=== PATIENT | female | born 1945 | race Caucasian/White ===

== ENCOUNTER 2017-07-15 15:42 | Outpatient (CLI) | payer MEDICARE, BC ==
--- NOTE | 2017-07-16 09:25 | XRAY Report ---
CHEST, TWO VIEWS: 07/15/2017 HISTORY: Cough and congestion. FINDINGS: There is increased density at the right base with possible small effusion worrisome for an air-space process. The lungs are otherwise clear. The heart size is normal. Mild degenerative ericka nge in the spine with slight height loss of one mid thoracic vertebral body. IMPRESSION: RIGHT BASILAR AIR-SPACE PROCESS AND SMALL EFFUSION. FOLLOWUP TO COMPLETE RADIOGRAPHIC C YARED SUGGESTED. JOB #: [id number] EXT JOB #:[id number]
== END 2017-07-15 15:43 | disposition home or self-care (01) ==
LOC: DI 15:42
PROVIDERS: ATTEND Family Medicine
DX: J40 Bronchitis, not specified as acute or chronic (principal); R05 Cough; R09.89 Other specified symptoms and signs involving the circulatory and respiratory systems
CPT/HCPCS: 71020

== ENCOUNTER 2019-04-28 10:13 | Outpatient (CLI) | payer MEDICARE, BC ==
[2019-04-28 17:51] LABS: HGB - HEMOGLOBIN 12.5 g/dL (12.0-16.0); MEAN CORPUSCULAR HEMOGLOBIN 36.2 pg (27.0-31.0); MEAN CORPUSCULAR HGB CONC 32.2 g/dL (32.0-36.0); MEAN CORPUSCULAR VOLUME 112.5 fL (81.0-99.0); MEAN PLATELET VOLUME 12.4 fL (7.9-10.8); RED BLOOD COUNT 3.45 10^6/uL (4.20-5.40); RED CELL DISTRIBUTION WIDTH 13.2 % (12.0-15.0); WHITE BLOOD COUNT 7.1 x10^3/uL (4.8-10.8)
[2019-04-28 18:22] LABS: CALCIUM 9.6 mg/dL (8.5-10.3); CREATININE 0.7 mg/dL (0.4-1.0)
[2019-04-28 18:23] LABS: CREATININE,URINE 187.7 mg/dL; PROTEIN/CREATININE RATIO,URINE 0.1 (<=0.2)
== END 2019-04-28 10:14 | disposition home or self-care (01) ==
LOC: LAB.S 10:13
PROVIDERS: ATTEND Internal Medicine Nephrology
DX: N05.9 Unspecified nephritic syndrome with unspecified morphologic changes (principal); D70.9 Neutropenia, unspecified; R80.9 Proteinuria, unspecified
CPT/HCPCS: 36415; 80048; 82570; 84156; 85027

== ENCOUNTER 2019-10-07 08:00 | Outpatient (CLI) | payer MEDICARE, BC | END 2019-10-07 23:59 | disposition home or self-care (01) | LOC: LAB.R 08:00 | PROVIDERS: ATTEND Physician Assistant | DX: R19.7 Diarrhea, unspecified (principal) | CPT/HCPCS: 87045; 87046; 87493 ==

== ENCOUNTER 2020-01-07 10:40 | Outpatient (CLI) | payer MEDICARE, BC ==
[2020-01-07 17:52] LABS: FOLATE 19.38 ng/mL (5.90 - >24.8)
== END 2020-01-07 10:41 | disposition home or self-care (01) ==
LOC: LAB.S 10:40
PROVIDERS: ATTEND Physician Assistant
DX: D75.89 Other specified diseases of blood and blood-forming organs (principal)
CPT/HCPCS: 36415; 82607; 82746

== ENCOUNTER 2020-03-31 13:00 | Outpatient (CLI) | payer MEDICARE, BC ==
[2020-03-31 15:15] LABS: BASOPHILS % (AUTO) 0.7 %; EOSINOPHILS # (AUTO) 0.1 10^3/uL (0.0-0.7); EOSINOPHILS % (AUTO) 1.1 %; HGB - HEMOGLOBIN 12.9 g/dL (12.0-16.0); LYMPHOCYTES # (AUTO) 1.7 10^3/uL (1.5-3.5); MEAN CORPUSCULAR HEMOGLOBIN 37.8 pg (27.0-31.0); MEAN CORPUSCULAR HGB CONC 33.5 g/dL (32.0-36.0); MEAN CORPUSCULAR VOLUME 112.9 fL (81.0-99.0); MONOCYTES # (AUTO) 0.7 10^3/uL (0.0-1.0); MONOCYTES % (AUTO) 11.8 %; NEUTROPHILS # (AUTO) 3.1 10^3/uL (1.5-6.6); NEUTROPHILS % (AUTO) 55.2 %; PLT - PLATELET COUNT 259 10^3/uL (130-450); RED BLOOD COUNT 3.41 10^6/uL (4.20-5.40); RED CELL DISTRIBUTION WIDTH 13.3 % (12.0-15.0); WHITE BLOOD COUNT 5.6 x10^3/uL (4.8-10.8)
[2020-03-31 15:33] LABS: T4 (THYROXINE) 6.56 ug/dL (6.09-12.23)
[2020-03-31 15:43] LABS: TOTAL T3 0.93 ng/mL (0.87-1.78)
[2020-03-31 16:13] LABS: PLATELET ESTIMATE, MANUAL NORMAL (130-450,000) (NORMAL); PLATELET MORPHOLOGY NORMAL APPEARANCE (NORMAL); RBC MORPHOLOGY (MULTIPLE) 1+ MACROCYTOSIS (NORMAL)
== END 2020-03-31 13:01 | disposition home or self-care (01) ==
LOC: LAB.S 13:00
PROVIDERS: ATTEND Physician Assistant
DX: R94.6 Abnormal results of thyroid function studies (principal); D75.89 Other specified diseases of blood and blood-forming organs; R53.83 Other fatigue
CPT/HCPCS: 36415; 84436; 84480; 85025

== ENCOUNTER 2020-06-22 14:39 | Outpatient (CLI) | payer MEDICARE, BC ==
[2020-06-22 20:37] LABS: CALCIUM 9.3 mg/dL (8.5-10.3); CREATININE 0.7 mg/dL (0.4-1.0)
== END 2020-06-22 14:40 | disposition home or self-care (01) ==
LOC: LAB.S 14:39
PROVIDERS: ATTEND Physician Assistant
DX: K52.832 Lymphocytic colitis (principal)
CPT/HCPCS: 36415; 80048

== ENCOUNTER 2021-08-04 11:36 | Emergency (ER) | payer MEDICARE, BC ==
--- NOTE | 2021-08-04 14:04 | ED Physician Documentation ---
PD HPI LOWER EXT INJURY - Stated complaint Stated Complaint: L LEG PX - Chief complaint Chief Complaint: Ext Problem - History obtained from History obtained from: Patient - History of Present Illness PD HPI LOW EXT INJURY LOCATION: Left, Lower leg Type of injury: Other (over use vs DVT) Where injury occurred: Other Timing - onset: How many days ago (5) Timing - duration: Days (5) Timing - details: Gradual onset, Still present Improved by: Rest Worsened by: Moving, Palpating Associated symptoms: Swelling. No: Weakness, Numbness, Tingling, Discolored Contributing factors: No: Anticoagulated Similar symptoms before: Has not had sx before Recently seen: Not recently seen - Additional information Additional information: 76-year-old female reports that she went on a 5-day bicycle ride with her and following that she got onto a plane and then did some more walking and she at some point developed pain in her left calf and behind her left knee. She has had persistence of the symptoms despite coming home and doing some gardening work her symptoms are worse and she is come into talk to Dr. Palmer at the walk-in clinic and she was sent her to have an ultrasound done of her veins on the left side. The patient states that she has not had any shortness of breath or chest pain associated with this. She does not know of a specific injury to the area. She does feel that there is swelling to her leg and that this is coming from the back of her left knee. Review of Systems Constitutional: denies: Fever Ears: denies: Ear pain Nose: denies: Congestion Throat: denies: Sore throat Respiratory: denies: Cough GI: denies: Abdominal Pain, Vomiting : denies: Dysuria, Frequency Skin: denies: Rash Musculoskeletal: reports: Extremity pain, Joint pain, Extremity swelling, Joint swelling, Pain with weight bearing. 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 - Present Medications Home Medications: Ambulatory Orders Medication Instructions Recorded Confirmed Raloxifene [Evista] 60 mg PO DAILY 01/14/14 11/14/14 Calcium Carbonate [Calcium] 1,200 mg PO DAILY 11/09/14 11/14/14 Cholecalciferol (Vitamin D3) 4,000 unit PO DAILY 11/09/14 11/14/14 [Vitamin D-3] Rivaroxaban [Xarelto] 15 mg PO BID #42 tablet 08/04/21 - Allergies Allergies/Adverse Reactions: Allergies Allergy/AdvReac Type Severity Reaction Status Date / Time No Known Drug Allergies Allergy Verified 08/04/21 12:05 - Social History Does the pt smoke?: No Smoking Status: Never smoker Does the pt drink ETOH?: Yes Does the pt have substance abuse?: No - Immunizations Immunizations are current?: Yes PD ED PE NORMAL - Vitals Vital signs reviewed: Yes (hypertensive ) - General General: Alert and oriented X 3, No acute distress, Well developed/nourished - HEENT HEENT: Atraumatic, PERRL, EOMI - Respiratory Respiratory: No respiratory distress - Derm Derm: Normal color, Warm and dry, No rash - Extremities Extremities: No deformity, No edema, Other (The left knee does have some swelling especially to the posterior aspect consistent with a Del Valle's cyst there is generalized swelling of the lower calf as well. There is mild swelling. Distal neurovascular components are intact. 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, No motor deficit, No sensory deficit, Normal speech Eye Opening: Spontaneous Motor: Obeys Commands Verbal: Oriented GCS Score: 15 - Psych Psych: Normal mood, Normal affect Results - Vitals Vitals: Vital Signs - 24 hr 08/04/21 08/04/21 12:05 15:04 Temperature 36.5 C 36.8 C Heart Rate 72 65 Respiratory 16 16 Rate Blood Pressure 138/62 H 141/56 H O2 Saturation 97 98 Oxygen O2 Source Room air - Rads (name of study) Duplex veins Radiology: Prelim report reviewed (Impression: Abnormal stomach study demonstrating deep vein thrombosis involving the left popliteal vein), EMP read indepedently, See rad report PD MEDICAL DECISION MAKING - ED course Complexity details: reviewed results, re-evaluated patient, considered differential, d/w patient ED course: 76-year-old female with a history of vigorous physical activity followed by sedentary positioning on an airplane has developed a deep vein thrombosis. She is treated here in the [facility] department with 15 mg of Xarelto we will place her on 15 twice a day for 3 weeks followed by 20 mg a day for 3 months. This is considered a provoked DVT. Departure - Departure Disposition: 01 Home, Self Care Clinical Impression: DVT (deep venous thrombosis) Qualifiers: DVT location: lower extremity Affected thrombotic vein of extremity: popliteal Chronicity: acute Laterality: left Qualified Code(s): I82.432 - Acute embolism and thrombosis of left popliteal vein Condition: Stable Instructions: ED DVT Follow-Up: Jay Murphy MD [Primary Care Provider] - Prescriptions: Rivaroxaban [Xarelto] 15 mg PO BID #42 tablet Discharge Date/Time: 08/04/21 15:04
--- NOTE | 2021-08-04 14:39 | Ultrasound Report ---
PROCEDURE: Duplex Ext Veins Left INDICATIONS: swelling pain TECHNIQUE: Real-time imaging, as well as color and pulse Doppler interrogation, were performed of the lower extr emity deep veins from the inguinal ligament to the popliteal fossa. COMPARISON: None. FINDINGS: Occlusive thrombus identified in the left popliteal vein. Left common femoral vein and supe rficial femoral vein are patent. IMPRESSION: Abnormal study demonstrating deep vein thrombosis involving the left popliteal vein. Reviewed by: Corinne Alcantara MD, PhD on 08/04/2021 2:38 PM PDT Approved by: Corinne Alcantara MD, PhD on 08/04/2021 2:38 PM PDT Station ID: [id number]
[2021-08-04] MEDS ORDERED: RIVAROXABAN 15 MG TABLET PO STA (14:53)
[2021-08-04 15:05] VITALS: BP 141/56
== END 2021-08-04 15:04 | disposition home or self-care (01) ==
LOC: ED 11:36
DX: I82.432 Acute embolism and thrombosis of left popliteal vein (principal); Z79.01 Long term (current) use of anticoagulants
CPT/HCPCS: 93971; 99284; A9270

== ENCOUNTER 2021-11-26 15:58 | Outpatient (CLI) | payer MEDICARE, BC ==
--- NOTE | 2021-11-26 16:44 | Ultrasound Report ---
PROCEDURE: Duplex Ext Veins Left INDICATIONS: DVT TECHNIQUE: Real-time imaging, as well as color and pulse Doppler interrogation, were performed of the lower extr emity deep veins from the inguinal ligament to the popliteal fossa. COMPARISON: 08/04/2021 FINDINGS: The deep veins are normally compressible, and free of intraluminal thrombus. Color and pu lse Doppler demonstrate normal phasic intraluminal flow. There is normal augmentation response to di stal compression maneuver. IMPRESSION: No sonographic evidence of DVT. Previously seen venous thrombosis is no longer demonstra evelin. Reviewed by: Ash Jesus MD on 11/26/2021 4:43 PM PST Approved by: Ash Jesus MD on 11/26/2021 4:43 PM PST Station ID: [id number]
== END 2021-11-26 15:59 | disposition home or self-care (01) ==
LOC: DI 15:58
PROVIDERS: ATTEND Physician Assistant
DX: Z86.718 Personal history of other venous thrombosis and embolism (principal)

== ENCOUNTER 2024-05-30 12:43 | Outpatient (CLI) | payer MEDICARE, BC | END 2024-05-30 12:44 | disposition home or self-care (01) | LOC: LAB 12:43 | PROVIDERS: ATTEND Internal Medicine | DX: R19.7 Diarrhea, unspecified (principal) | CPT/HCPCS: 87045; 87046; 87329; 87427; 87493 ==

== ENCOUNTER 2024-06-11 10:43 | Outpatient (CLI) | payer MEDICARE, BC | END 2024-06-11 10:44 | disposition home or self-care (01) | LOC: LAB.R 10:43 | PROVIDERS: ATTEND Internal Medicine | DX: R19.7 Diarrhea, unspecified (principal) | CPT/HCPCS: 87493 ==